=== PATIENT | male | born 1990 | race African-American/Black ===

== ENCOUNTER 2022-06-09 15:43 | Emergency (ER) | payer BC, SELFPAY ==
[2022-06-09 16:07] LABS: Bilirubin Negative (Negative); Blood, Urine Negative (Negative); Clarity Clear (Clear); Glucose, Urine (Dipstick) Negative (Negative); Ketone, Urine Negative (Negative); Leukocyte Small (Negative); Nitrite Negative (Negative); Protein, Urine (Dipstick) Negative (Neg-Trace); Urobilinogen 0.2 mg/dL (Less than 2); pH, Urine 6.5 (5.0-9.0)
[2022-06-09 16:13] LABS: Bacteria/HPF None Seen HPF (None Seen); RBC/HPF None Seen HPF (0-3); Squamous Epithelial None Seen HPF (0-3)
[2022-06-09] MEDS ORDERED: Doxycycline 100 MG CAP ONE (17:06)
[2022-06-09] MEDS ORDERED: cefTRIAXone\\ROCEPHIN 500 MG VIAL ONE (17:07)
[2022-06-10 12:43] LABS: Chlam.trachomatis by PCR,Urine Not Detected (NotDetected)
== END 2022-06-09 17:15 | disposition home or self-care (01) ==
LOC: BURERS 15:43
DX: N34.2 Other urethritis (principal); F17.210 Nicotine dependence, cigarettes, uncomplicated
CPT/HCPCS: 81003; 81015; 87491; 87591; 96372; 99283; J0696